=== PATIENT | female | born 1975 | race Caucasian/White ===

== ENCOUNTER 2016-07-29 09:54 | Emergency (ER) | payer OTHER ==
[~2016-07-29 09:54] MED LIST: FLAGYL500 MG PO; LEVAQUIN500 MG PO
== END 2016-07-29 12:35 | disposition home or self-care (01) ==
LOC: ER1 09:54
DX: S39.012A Strain of muscle, fascia and tendon of lower back, initial encounter (principal); S46.912A Strain of unspecified muscle, fascia and tendon at shoulder and upper arm level, left arm, initial encounter; G89.29 Other chronic pain; J44.9 Chronic obstructive pulmonary disease, unspecified; F17.200 Nicotine dependence, unspecified, uncomplicated; Z88.1 Allergy status to other antibiotic agents; Z88.5 Allergy status to narcotic agent; Z90.49 Acquired absence of other specified parts of digestive tract; X50.1XXA Overexertion from prolonged static or awkward postures, initial encounter; X50.9XXA Other and unspecified overexertion or strenuous movements or postures, initial encounter; Z79.899 Other long term (current) drug therapy
CPT/HCPCS: 81001; 99283

== ENCOUNTER 2016-07-31 12:38 | Emergency (ER) | payer OTHER ==
[2016-07-31 15:30] LABS: HEMOGLOBIN 13.1 gm/dl (12.3-15.3); RED BLOOD COUNT 4.3 M/UL (4.00-5.10); WHITE BLOOD COUNT 6.6 K/UL (4.5-11.0)
[2016-07-31 15:59] LABS: BUN/CREATININE RATIO 11 (0-10)
== END 2016-07-31 18:30 | disposition home or self-care (01) ==
LOC: ER1 12:38
PROVIDERS: Nurse Practitioner Family
DX: R10.13 Epigastric pain (principal); R11.0 Nausea; R50.9 Fever, unspecified; Z88.1 Allergy status to other antibiotic agents; Z88.5 Allergy status to narcotic agent; J44.9 Chronic obstructive pulmonary disease, unspecified; E78.5 Hyperlipidemia, unspecified; F17.210 Nicotine dependence, cigarettes, uncomplicated; Z79.899 Other long term (current) drug therapy
CPT/HCPCS: 36415; 80053; 81001; 82150; 83605; 83690; 84703; 85025; 87086; 96374; 96375; 99284; J2270; J2405; J7030; J7050; Q9962

== ENCOUNTER 2016-08-11 12:38 | Emergency (ER) | payer OTHER | END 2016-08-11 14:00 | disposition home or self-care (01) | LOC: ER1 12:38 | DX: S62.606A Fracture of unspecified phalanx of right little finger, initial encounter for closed fracture (principal); S46.812A Strain of other muscles, fascia and tendons at shoulder and upper arm level, left arm, initial encounter; J44.9 Chronic obstructive pulmonary disease, unspecified; F17.210 Nicotine dependence, cigarettes, uncomplicated; Z88.1 Allergy status to other antibiotic agents; Z88.5 Allergy status to narcotic agent; W20.8XXA Other cause of strike by thrown, projected or falling object, initial encounter; Y93.89 Activity, other specified; Y92.009 Unspecified place in unspecified non-institutional (private) residence as the place of occurrence of the external cause; Z79.899 Other long term (current) drug therapy | CPT/HCPCS: 29130; 73030; 73130; 99283 ==

== ENCOUNTER 2016-09-01 08:35 | Emergency (ER) | payer OTHER ==
[2016-09-01 09:45] LABS: BUN/CREATININE RATIO 13 (0-10)
[2016-09-01 09:59] LABS: HEMOGLOBIN 13.8 gm/dl (12.3-15.3); RED BLOOD COUNT 4.5 M/UL (4.00-5.10); WHITE BLOOD COUNT 5.1 K/UL (4.5-11.0)
== END 2016-09-01 13:06 | disposition home or self-care (01) ==
LOC: ER1 08:35
PROVIDERS: Emergency Medicine
DX: R10.33 Periumbilical pain (principal); R19.7 Diarrhea, unspecified; R11.2 Nausea with vomiting, unspecified; J44.9 Chronic obstructive pulmonary disease, unspecified; F17.200 Nicotine dependence, unspecified, uncomplicated; Z90.49 Acquired absence of other specified parts of digestive tract
CPT/HCPCS: 36415; 80053; 81001; 82150; 83690; 85025; 96374; 96375; 96376; 99284; J2270; J2405

== ENCOUNTER 2016-09-07 15:50 | Emergency (ER) | payer OTHER ==
[2016-09-07 17:28] LABS: HEMOGLOBIN 12.8 gm/dl (12.3-15.3); RED BLOOD COUNT 4.17 M/UL (4.00-5.10); WHITE BLOOD COUNT 5.4 K/UL (4.5-11.0)
[2016-09-07 17:45] LABS: BUN/CREATININE RATIO 14 (0-10)
== END 2016-09-07 18:31 | disposition home or self-care (01) ==
LOC: ER1 15:50
PROVIDERS: Emergency Medicine
DX: R10.84 Generalized abdominal pain (principal); R11.2 Nausea with vomiting, unspecified; Z90.49 Acquired absence of other specified parts of digestive tract; Z79.899 Other long term (current) drug therapy
CPT/HCPCS: 36415; 80053; 83690; 85025; 96365; 99284; J2550

== ENCOUNTER 2016-09-24 21:59 | Emergency (ER) | payer OTHER ==
[2016-09-24 23:30] LABS: HEMOGLOBIN 13.8 gm/dl (12.3-15.3); RED BLOOD COUNT 4.47 M/UL (4.00-5.10)
== END 2016-09-25 00:50 | disposition home or self-care (01) ==
LOC: ER1 21:59
PROVIDERS: Emergency Medicine
DX: R10.84 Generalized abdominal pain (principal); R11.2 Nausea with vomiting, unspecified; R19.7 Diarrhea, unspecified; Z90.49 Acquired absence of other specified parts of digestive tract; Z88.1 Allergy status to other antibiotic agents; Z88.5 Allergy status to narcotic agent
CPT/HCPCS: 36415; 71010; 80053; 81001; 82272; 83690; 84703; 85025; 87086; 93005; 96361; 96374; 96375; 99284; J2270; J2405

== ENCOUNTER 2016-10-04 16:56 | Emergency (ER) | payer OTHER | END 2016-10-04 19:16 | disposition home or self-care (01) | LOC: ER1 16:56 | DX: S09.90XA Unspecified injury of head, initial encounter (principal); F17.200 Nicotine dependence, unspecified, uncomplicated; V49.40XA Driver injured in collision with unspecified motor vehicles in traffic accident, initial encounter | CPT/HCPCS: 99283 ==

== ENCOUNTER 2016-10-07 15:56 | Emergency (ER) | payer OTHER ==
[2016-10-07 16:52] LABS: HEMOGLOBIN 14.1 gm/dl (12.3-15.3); RED BLOOD COUNT 4.61 M/UL (4.00-5.10); WHITE BLOOD COUNT 6.9 K/UL (4.5-11.0)
[2016-10-07 17:11] LABS: BUN/CREATININE RATIO 9 (0-10)
== END 2016-10-07 18:02 | disposition home or self-care (01) ==
LOC: ER1 15:56
PROVIDERS: Physician Assistant Medical
DX: R10.84 Generalized abdominal pain (principal); R11.2 Nausea with vomiting, unspecified; R19.7 Diarrhea, unspecified; J44.9 Chronic obstructive pulmonary disease, unspecified; F17.210 Nicotine dependence, cigarettes, uncomplicated; Z88.1 Allergy status to other antibiotic agents; Z88.5 Allergy status to narcotic agent; Z90.49 Acquired absence of other specified parts of digestive tract; Z79.899 Other long term (current) drug therapy
CPT/HCPCS: 36415; 80053; 81001; 82150; 83605; 83690; 85025; 96361; 96374; 96375; 99284; J2270; J2405; J7030

== ENCOUNTER 2016-10-23 00:09 | Emergency (ER) | payer OTHER ==
[2016-10-23 04:34] LABS: HEMOGLOBIN 12.8 gm/dl (12.3-15.3); RED BLOOD COUNT 4.18 M/UL (4.00-5.10); WHITE BLOOD COUNT 6.3 K/UL (4.5-11.0)
[2016-10-23 04:54] LABS: BUN/CREATININE RATIO 12 (0-10)
== END 2016-10-23 07:10 | disposition home or self-care (01) ==
LOC: ER1 00:09
PROVIDERS: Emergency Medicine
DX: R10.9 Unspecified abdominal pain (principal); R11.2 Nausea with vomiting, unspecified; G89.29 Other chronic pain
CPT/HCPCS: 36415; 80053; 81001; 83690; 85025; 87086; 96361; 96374; 99284; J2405; J7030

== ENCOUNTER 2016-11-05 19:09 | Emergency (ER) | payer OTHER ==
[2016-11-05 20:02] LABS: HEMOGLOBIN 13.9 gm/dl (12.3-15.3); RED BLOOD COUNT 4.5 M/UL (4.00-5.10); WHITE BLOOD COUNT 5.3 K/UL (4.5-11.0)
[2016-11-05 20:21] LABS: BUN/CREATININE RATIO 14 (0-10)
== END 2016-11-05 21:09 | disposition home or self-care (01) ==
LOC: ER1 19:09
PROVIDERS: Emergency Medicine
DX: R10.9 Unspecified abdominal pain (principal); R11.2 Nausea with vomiting, unspecified; R45.1 Restlessness and agitation
CPT/HCPCS: 36415; 80053; 81001; 83690; 84703; 85025; 87086; 96372; 99284; J1630; J7030